=== PATIENT | female | born 1985 | race Caucasian/White ===

== ENCOUNTER 2019-05-08 10:07 | Emergency (ER) | payer OTHER ==
[~2019-05-08] VITALS: Ht 167.6 cm; Wt 61.2 kg
[2019-05-08 10:09] VITALS: BP 125/86
--- NOTE | 2019-05-08 10:12 | NUR ---
34 Y/O FEMALE BIB [place] [employer] PREBOOK FOR MEDICAL CLEARANCE. PT STATES SHE HAS LICE AND NEEDS TO BE CLEARED FOR COURT. VSS MEDHX: DENIES ALLERGIES:FERCHO
--- NOTE | 2019-05-08 10:18 | NUR ---
DR TAYLOR EXAMINING PT
[2019-05-08 10:20] VITALS: BP 122/80
--- NOTE | 2019-05-08 10:20 | NUR ---
Patient discharged with v/s stable. Written and verbal after care instructions given and explained. Patient alert, oriented and verbalized understanding of instructions. Police with in custody. All questions addressed prior to discharge. ID band removed. Patient advised to follow up with PMD. No Rx given. Patient educated on indication of medication including possible reaction and side effects. Opportunity to ask questions provided and answered.
== END 2019-05-08 10:20 | disposition home or self-care (01) ==
LOC: MED 10:07
DX: Z02.89 Encounter for other administrative examinations (principal)
CPT/HCPCS: 99283